=== PATIENT | male | born 1980 | race Caucasian/White ===

== ENCOUNTER 2016-12-24 10:57 | Inpatient (IN) | payer OTHER ==
[2016-12-24] VITALS (8 sets, daily range): BP systolic 108–135; BP diastolic 58–71; PULSE 64–75; TEMP 98.2–98.3
[~2016-12-24] VITALS: Ht 182.9 cm; Wt 86.1 kg
[2016-12-24] MEDS ORDERED: CLARITIN 1010 MG/TAB PO (11:47)
[2016-12-24] MEDS ORDERED: CHLOR TRIMETON 44 MG PO (11:49)
[2016-12-24] MEDS ORDERED: ZANTAC 7575 MG PO (11:50)
== END 2016-12-24 19:30 | disposition home or self-care (01) | DRG 352 ==
LOC: SURG 10:57
PROVIDERS: Surgery
PROC: 07BH4ZX Excision of Right Inguinal Lymphatic, Percutaneous Endoscopic Approach, Diagnostic (ICD-10-PCS; 2016-12-24)
PROC: 8E0W4CZ Robotic Assisted Procedure of Trunk Region, Percutaneous Endoscopic Approach (ICD-10-PCS; 2016-12-24)
PROC: 0YU54JZ Supplement Right Inguinal Region with Synthetic Substitute, Percutaneous Endoscopic Approach (ICD-10-PCS; principal; 2016-12-24 14:00)
DX: K40.30 Unilateral inguinal hernia, with obstruction, without gangrene, not specified as recurrent (principal); I88.9 Nonspecific lymphadenitis, unspecified; Z86.11 Personal history of tuberculosis
CPT/HCPCS: A4315; C1781; J0690; J1100; J1885; J2405; J2704; J2710; J3010; J7120